=== PATIENT | male | born 1995 | race Two or more races ===

== ENCOUNTER 2024-05-25 17:54 | Emergency (ER) | payer SELFPAY ==
[~2024-05-25] VITALS: Ht 167.6 cm; Wt 136.1 kg
[2024-05-25 18:07] VITALS: O2SAT 99
== END 2024-05-25 19:40 | disposition left against medical advice (07) ==
LOC: ER 17:58
DX: F41.9 Anxiety disorder, unspecified (principal); Z53.21 Procedure and treatment not carried out due to patient leaving prior to being seen by health care provider
CPT/HCPCS: A4606; A4663